=== PATIENT | female | born 1965 | race Caucasian/White ===

== ENCOUNTER 2024-07-27 08:10 | Day surgery (SDC) | payer OTHER ==
[2024-07-24 14:39] VITALS: BMI 25.7
[2024-07-27] MEDS ORDERED: LIDOCAINE HCL/PF 2% SDV 5ML VIAL ONE (09:00)
[2024-07-27] MEDS ORDERED: PROPOFOL 20 ML ONE ×4 (09:00→13:37)
[2024-07-27] MEDS ORDERED: MIDAZOLAM HCL 2 MG/2 ML SINGLE DOSE VIAL ONE (10:45)
[2024-07-27] MEDS ORDERED: BUPIVACAINE HCL/EPINEPHRINE/PF 30 ML VIAL IJ ONE (11:15)
[2024-07-27] MEDS ORDERED: ceFAZolin SODIUM 1 GM VIAL ONE (11:43)
[2024-07-27] MEDS ORDERED: DEXAMETHASONE SOD PHOSPHATE 4 MG/1 ML VIAL ONE ×2 (11:44→11:45)
[2024-07-27] MEDS: BUPIVACAINE 0.25% /EPI 1:200,000 10 ML VIAL NR ONE (11:52)
[2024-07-27] MEDS ORDERED: ONDANSETRON 4 MG/2 ML VIAL ONE (12:57)
[2024-07-27] MEDS ORDERED: NITROGLYCERIN 2% OINTMENT - 1GM PACKET TD ONE (13:00)
[2024-07-27] MEDS ORDERED: HYDROmorphone HCL/PF 1 MG/ML VIAL ONE (13:17)
[2024-07-27] MEDS ORDERED: oxyCODONE HCL 5 MG TABLET PO PRN ×2 (13:34)
[2024-07-27] MEDS ORDERED: ACETAMINOPHEN INJECTION 100 ML ONE (13:36)
[2024-07-27] MEDS ORDERED: LACTATED RINGERS SOLUTION 1,000 ML IV SCH (13:45)
[2024-07-27] MEDS: ONDANSETRON 4 MG/2 ML VIAL IVPUSH PRN (14:05)
[2024-07-27] MEDS: PROMETHAZINE HCL 25 MG/1 ML VIAL IVPB PRN (14:10)
[2024-07-27] MEDS ORDERED: FENTANYL CITRATE/PF 50 MCG/ML VIAL ONE (14:26)
[2024-07-27 15:03] VITALS: RESP 16
[2024-07-27 15:45] VITALS: TEMP 97.7
[2024-07-27] MEDS ORDERED: oxyCODONE HCL 5 MG TABLET ONE (15:48)
[2024-07-27] MEDS: oxyCODONE HCL 5 MG TABLET PO ONE (15:55)
[2024-07-27 16:30] VITALS: BP 116/74; PULSE 78
== END 2024-07-27 16:57 | disposition home or self-care (01) ==
LOC: FASU 08:10
PROVIDERS: ATTEND Plastic Surgery
PROC: 0HBV0ZZ Excision of Bilateral Breast, Open Approach (ICD-10-PCS; principal; 2024-07-27 11:52)
DX: N62 Hypertrophy of breast (principal)
CPT/HCPCS: 88305-TC; 94760